=== PATIENT | female | born 1950 | race Caucasian/White ===

== ENCOUNTER 2016-11-18 10:40 | Emergency (ER) ==
[2016-11-18 10:49] VITALS: BP 149/78
--- NOTE | 2016-11-18 11:04 | PROVIDER DOCUMENTATION ---
HPI-General Adult - General Source: patient - History of Present Illness -Gen Adult Nature of Presenting Problems: pt is a 66 y/o F present to the ER with complaints of pain to the outer left foot. pt denies any recent injury. pt states pain radiates to the ankle and cannot bear weight on her foot. pt recently had back surgery x 1 month ago. pt states pain started monday night. denies eating seafood or drinking beer. Location of Pain/Injury: reports: feet (Left foot) Pain Radiation: reports: other (Left ankle) Quality of Pain: reports: burning Severity: reports: moderate Onset/Duration: reports: 2 days ago Timing: reports: still present Context/Activities at Onset: reports: none Modifying Factors: improves with: rest Associated Symptoms: denies: anxiety, arm pain, chest pain, fatigue, fever/ chills <Noelle Horta - Last Filed: 11/18/16 12:11> <Tomasz Christopher - Last Filed: 11/18/16 12:39> - General Chief Complaint: Extremity Pain Stated Complaint: EXTREMITY PAIN Time Seen by Provider: 11/18/16 10:59 Allergies/Adverse Reactions: Patient Allergies Allergy/AdvReac Type Severity Reaction Status Date / Time ciprofloxacin [From Cipro] Allergy Unknown Verified 11/18/16 10:49 ciprofloxacin HCl * Allergy Unknown Verified 11/18/16 10:49 [From Cipro] levofloxacin [From Levaquin] Allergy Unknown Verified 11/18/16 10:49 montelukast sodium * Allergy Unknown Verified 11/18/16 10:49 [From Singulair] Review of Systems - Adult - REVIEW OF SYSTEMS - ADULT Constitutional: denies: chills, fever, fatique Eyes: reports: no symptoms reported Ears, Nose, Mouth & Throat: reports: no symptoms reported Cardiovascular: reports: no symptoms reported Respiratory: reports: no symptoms reported Gastrointestinal: reports: no symptoms reported Genitourinary: reports: no symptoms reported Musculoskeletal: reports: other (pain to the outer aspect of the left foot). denies: frequent leg cramps, muscle weakness Integumentary: denies: hives, hair loss, itching Neurological: reports: no symptoms reported Psychiatric: reports: no symptoms reported Endocrine: reports: no symptoms reported Hematologic/Lymphatic: reports: no symptoms reported Allergic/Immunologic: reports: no symptoms reported All Other Systems: Reviewed and Negative <MychalNoelle ely - Last Filed: 11/18/16 12:11> Past History - Adult - PAST MEDICAL HISTORY-ADULT Review of Records: reports: Nursing Assessment Review Cardiovascular: reports: HTN - IMMUNIZATION STATUS Childhood Immunizations: See Nurse Assessment Flu Vaccine: See Nurse Assessment - SOCIAL HISTORY Smoking: denies Substance Use: none/never Alcohol Use Frequency: never <Noelle Horta - Last Filed: 11/18/16 12:11> Physical Exam-General - PHYSICAL EXAM-ADULT Initial Vital Signs Reviewed: Yes - CONSTITUTIONAL General Appearance: appears well, alert, no apparent distress - EYES Eyes: PERRL/EOMI, pink conjunctivae - HEAD, EARS, NOSE, MOUTH & THROAT HENMT: moist mucous membranes - NECK Neck: non-tender, full range of motion - RESPIRATORY Respiratory: chest non-tender, lungs clear, normal breath sounds, no pleuratic chest pain, no respiratory distress, no accessory muscle use - CARDIOVASCULAR Cardiovascular: normal peripheral pulses, regular rate, rhythm - GASTROINTESTINAL (ABDOMEN) Abdominal Exam: normal bowel sounds, non tender, soft - MUSCULOSKELETAL Back Exam: no CVA tenderness Extremity: erythema (Mild redness to outer left ankle), tenderness (Left outer ankle TTP) - SKIN Integumentary: normal color, normal turgor, warm/dry - NEUROLOGIC Neurologic: grossly normal, no motor/sensory deficits - PSYCHIATRIC Psych/Mental Status: normal mood/affect, normal thought content, normal thought process, oriented x 3 <Noelle Horta - Last Filed: 11/18/16 12:11> Progress - PLAN OF CARE/RESULTS Progress/Plan/Lab Results: Orders Category Date Time Status FOOT COMPLETE LEFT [RAD] Stat Exams 11/18/16 11:02 Ordered CBC WITH ELECTRONIC DIFF [HEME] Stat Lab 11/18/16 11:02 Ordered COMPREHENSIVE METABOLIC PANEL [CHEM] Stat Lab 11/18/16 11:02 Ordered URIC ACID [CHEM] Stat Lab 11/18/16 11:02 Ordered Vital Signs - 24 hr 11/18/16 10:45 Temperature 97 F L Pulse Rate 101 H Respiratory 18 Rate Blood Pressure 149/78 O2 Sat by Pulse 100 Oximetry Laboratory Tests 11/18/16 11/18/16 11:19 11:19 WBC 9.43 RBC 4.46 Hgb 13.2 Hct 39.8 MCV 89.2 MCH 29.6 MCHC 33.2 RDW Std Deviation 12.4 Plt Count 226 MPV 10.2 Immature Gran % (Auto) 0.2 Neut % (Auto) 75.5 H Lymph % (Auto) 16.9 L [place] % (Auto) 6.3 Eos % (Auto) 1.0 Baso % (Auto) 0.1 Immature Gran # (Auto) 0.02 Neut # (Auto) 7.13 H Lymph # (Auto) 1.59 [place] # (Auto) 0.59 Eos # (Auto) 0.09 Baso # (Auto) 0.01 Sodium 139 Potassium 3.4 L Chloride 100 Carbon Dioxide 25 Anion Gap 13 BUN 11 Creatinine 1.2 H Estimated GFR/1.73 m2 45 BUN/Creatinine Ratio 9 Glucose 125 H Calculated Osmolality 278 Uric Acid 8.6 H Calcium 9.3 Total Bilirubin 0.30 AST 13 ALT 10 Alkaline Phosphatase 102 Total Protein 6.7 Albumin 3.8 Globulin 3.0 Albumin/Globulin Ratio 1.0 Orders Category Date Time Status FOOT COMPLETE LEFT [RAD] Stat Exams 11/18/16 11:02 Taken CBC WITH ELECTRONIC DIFF [HEME] Stat Lab 11/18/16 11:19 Completed COMPREHENSIVE METABOLIC PANEL [CHEM] Stat Lab 11/18/16 11:19 Completed URIC ACID [CHEM] Stat Lab 11/18/16 11:19 Completed Vital Signs - 24 hr 11/18/16 10:45 Temperature 97 F L Pulse Rate 101 H Respiratory 18 Rate Blood Pressure 149/78 O2 Sat by Pulse 100 Oximetry - XRAY 1 XRAY: Left XRAY Study: Foot Impression: Abnormal (Minimal Athritis) <Noelle Horta - Last Filed: 11/18/16 12:11> Departure - Departure Time of Disposition Order: 12:07 Certified Medical Emergency: Emergent <Noelle Horta - Last Filed: 11/18/16 12:11> - Departure Time of Disposition Order: 12:39 Certified Medical Emergency: Emergent <Tomasz Christopher - Last Filed: 11/18/16 12:39> - Departure DIAGNOSIS: Gouty arthritis, Hyperuricemia Hypertension Qualifiers: Hypertension type: essential hypertension Qualified Code(s): I10 - Essential ( primary) hypertension Disposition: HOME 01 Condition: Stable Additional Instructions: ED Follow Up Instructions: You have been treated by a care provider in the Emergency Department. These instructions are being provided to you so you can have an understanding of how to care for yourself upon discharge. Upon discharge from the Emergency Department, you are responsible for making arrangements for follow-up care by a physician of your choice. Take all prescribed medications as directed. Return to the Emergency Department immediately for any new or worsening symptoms. You may call the Physician Referral phone number at [phone] to obtain a list of Physicians who are taking new patients. Prescriptions: Colchicine [Colcrys] 0.6 mg PO BID PRN PRN #20 tablet PRN Reason: gout Naproxen [Naprosyn] 500 mg PO BID PRN PRN #30 tablet PRN Reason: Pain Referrals: Jennifer Kiser MD [Primary Care Provider] - Forms: Return to School/Parent Work Instructions: Colchicine tablets or capsules, Arthritis, Nonspecific, Naproxen delayed-release tablets, Hypertension, [id number] Attestation - Scribe Verification/Attestation Scribe:: Noelle Horta Acting as Scribe for:: Tomasz Christopher Scribe documention review:: This chart was documented by a scribe and accurately reflects the service the provider performed and the decisions made by the provider. <Noelle Horta - Last Filed: 11/18/16 12:11> Physician Attestation
[2016-11-18 11:23] LABS: MANUAL DIFF NEEDED? NO
[2016-11-18 11:28] LABS: BASO% 0.1 % (0.0-0.8); EOS# 0.09 X1000 (0.0-0.7); HEMATOCRIT 39.8 % (37.0-47.0); HEMOGLOBIN 13.2 g/dL (12.0-16.0); IMM GRAN# 0.02 X1000 (0.0-0.04); IMM GRAN% 0.2 % (0.0-0.5); LYMPH# 1.59 X1000 (1.2-3.4); LYMPH% 16.9 % (20.5-51.1); MCH 29.6 PG (27-31); MCHC 33.2 g/dL (33-37); MCV 89.2 FL (81-99); MONO# 0.59 X1000 (0.11-0.59); MONO% 6.3 % (1.7-9.3); MPV 10.2 FL (7.4-10.4); NEUT% 75.5 % (42.2-75.2); PLT 226 X1000 (130-400); RBC 4.46 XMIL (4.2-5.4)
[2016-11-18 11:45] LABS: ALBUMIN 3.8 g/dL (3.5-5.0); CALCIUM 9.3 mg/dL (8.8-10.2); POTASSIUM 3.4 mmol/L (3.5-5.1); TOTAL BILIRUBIN 0.3 mg/dL (0.20-1.00); TOTAL PROTEIN 6.7 g/dL (6.3-8.3); URIC ACID 8.6 mg/dL (2.4-5.7)
--- NOTE | 2016-11-18 12:15 | Diag Imaging Result Document ---
PROCEDURE NAME: FOOT COMPLETE LEFT - 11/18/2016 LEFT FOOT, THREE VIEWS: FINDINGS: There is a tiny inferior calcaneal bone spur. Mild joint space narrowing to the first metatarsophalangeal joint. No bone erosions. No fracture. No dislocation. IMPRESSION: Minimal arthritic changes.
== END 2016-11-18 12:41 | disposition home or self-care (01) ==
LOC: P.ED 10:40
DX: M10.9 Gout, unspecified (principal); I10 Essential (primary) hypertension; M79.672 Pain in left foot; M25.572 Pain in left ankle and joints of left foot; L53.9 Erythematous condition, unspecified
CPT/HCPCS: 36415; 80053; 84550; 85025; 99283